=== PATIENT | male | born 1955 | race Caucasian/White ===

== ENCOUNTER 2021-02-04 12:46 | Emergency (ER) | payer OTHER, MEDICARE ==
[~2021-02-04 12:46] MED LIST: KEFLEX250 MG PO
[2021-02-04 14:03] LABS: BILIRUBIN 3+ mg/dL (NEGATIVE); BLOOD NEGATIVE Ery/uL (NEGATIVE); CLARITY CLEAR (CLEAR); GLUCOSE (U) 3+ mg/dL (NORMAL); LEUKOCYTES NEGATIVE Leu/uL (NEGATIVE); NITRITE NEGATIVE (NEGATIVE); PROTEIN TRACE (LOW) mg/dL (NEGATIVE); pH 6.5 (5.0-9.0)
[2021-02-04 14:04] LABS: COLOR AMBER (YELLOW)
[2021-02-04 14:05] LABS: BASOPHIL 0.5 % (0-2); EOSINOPHIL 0.2 % (0-5); HCT 42.8 % (42.0-52.0); HGB 14.9 g/dl (13.2-18.0); LYMPHOCYTE 18.6 % (15-48); MCH 31.6 pg (25.0-31.0); MCHC 34.8 g/dL (32.0-36.0); MCV 90.7 fL (78.0-100.0); MONOCYTE 8.7 % (0-12); NEUTROPHIL 71.6 % (41-80); NRBC 0; PLT 214 K/uL (150-400); RBC 4.72 M/uL (4.70-6.00); RDW 14.4 % (11.5-14.0)
[2021-02-04 14:08] LABS: SQUAMOUS EPITHELIAL CELLS RARE; URINARY RBC RARE; URINARY WBC RARE
[2021-02-04 14:09] LABS: WBC 9.2 K/uL (4.0-10.5)
[2021-02-04 14:44] LABS: CREATININE 0.77 mg/dL (0.67-1.17); POTASSIUM 3.5 mmol/L (3.5-5.1)
[2021-02-04 14:45] LABS: ALBUMIN 2.8 g/dL (3.4-5.0); GLOBULIN (CALCULATION) 4.5 g/dL; TOTAL PROTEIN 7.3 g/dL (6.4-8.2)
[2021-02-04 14:46] LABS: BILIRUBIN - TOTAL 10.9 mg/dL (0.2-1.0)
[2021-02-04 15:22] LABS: CORONAVIRUS 2019 SARS-COV-2 NEGATIVE (NEGATIVE); INFLUENZA A NAA NEGATIVE (NEGATIVE)
== END 2021-02-04 18:02 | disposition other institution (70) ==
LOC: FER 12:46
PROVIDERS: Nurse Practitioner Family
DX: K57.32 Diverticulitis of large intestine without perforation or abscess without bleeding (principal); K83.1 Obstruction of bile duct; Z20.822 Contact with and (suspected) exposure to COVID-19
CPT/HCPCS: 36415; 80053; 81001; 82150; 83605; 83690; 85025; 87040; J2543; J7030; Q9967; U0002

== ENCOUNTER 2021-12-16 15:15 | Inpatient (IN) | payer MEDICARE, OTHER ==
[~2021-12-16] VITALS: Ht 172.7 cm; Wt 48.6 kg
[2021-12-16 16:31] LABS: BASOPHIL 0.2 % (0-2); EOSINOPHIL 0 % (0-5); HCT 38.3 % (42.0-52.0); HGB 12.5 g/dl (13.2-18.0); LYMPHOCYTE 4.2 % (15-48); MCH 30.6 pg (25.0-31.0); MCHC 32.6 g/dL (32.0-36.0); MCV 93.9 fL (78.0-100.0); MONOCYTE 2.1 % (0-12); NRBC 0.3; PLT 180 K/uL (150-400); RBC 4.08 M/uL (4.70-6.00); RDW 15.9 % (11.5-14.0); WBC 11.2 K/uL (4.0-10.5)
[2021-12-16 16:32] LABS: NEUTROPHIL 93.1 % (41-80)
[2021-12-16 17:02] LABS: LACTIC ACID 7.4 mmol/L (0.4-1.9)
[2021-12-16 17:07] LABS: ALBUMIN 1.3 g/dL (3.4-5.0); CREATININE 0.5 mg/dL (0.67-1.17); POTASSIUM 3.8 mmol/L (3.5-5.1); TOTAL PROTEIN 6.3 g/dL (6.4-8.2)
[2021-12-16 17:08] LABS: BILIRUBIN - TOTAL 5.7 mg/dL (0.2-1.0)
[2021-12-17 06:36] LABS: BASOPHIL 0 % (0-2); EOSINOPHIL 0 % (0-7); HCT 23.8 % (42.0-52.0); LYMPHOCYTE 9.4 % (15-48); MCH 31.3 pg (25.0-31.0); MCHC 35.3 g/dL (32.0-36.0); MONOCYTE 2.9 % (0-12); NEUTROPHIL 87.4 % (41-80); NRBC 0; PLT 107 K/uL (150-400); RBC 2.68 M/uL (4.70-6.00); RDW 15.7 % (11.5-14.0)
[2021-12-17 06:41] LABS: HGB 8.4 g/dl (13.2-18.0); MCV 88.8 fL (78.0-100.0)
[2021-12-17 06:46] LABS: INR 1.8 (0.9-1.2); PROTHROMBIN TIME 20.1 SECONDS (11.8-13.4)
[2021-12-17 06:53] LABS: BUN/CREAT RATIO (CALC) 24.4 RATIO; CREATININE 0.41 mg/dL (0.67-1.17); GLOBULIN (CALCULATION) 3.5 g/dL; MAGNESIUM 1.7 mg/dL (1.8-2.4); PHOSPHORUS 2.4 mg/dL (2.6-4.7); POTASSIUM 3.5 mmol/L (3.5-5.1); TOTAL PROTEIN 4.5 g/dL (6.4-8.2)
[2021-12-17 11:03] LABS: BILIRUBIN 3+ mg/dL (NEGATIVE); BLOOD NEGATIVE Ery/uL (NEGATIVE); CLARITY CLEAR (CLEAR); COLOR YELLOW (YELLOW); GLUCOSE (U) NORMAL (NORMAL); LEUKOCYTES NEGATIVE Leu/uL (NEGATIVE); NITRITE POSITIVE (NEGATIVE); PROTEIN TRACE (LOW) mg/dL (NEGATIVE); SPECIFIC GRAVITY 1.015 (1.001-1.030); pH 6.5 (5.0-9.0)
[2021-12-17 11:12] LABS: MUCOUS TRACE
[2021-12-17 11:13] LABS: URINARY RBC RARE
[2021-12-17 11:14] LABS: BACTERIA TRACE; SQUAMOUS EPITHELIAL CELLS RARE
[2021-12-17] MEDS ORDERED: NORCO 5/3251 EACH PO (13:31)
[2021-12-17] MEDS ORDERED: MS CONTIN30 MG PO (13:32)
[2021-12-17] MEDS ORDERED: CARAFATE1 GM PO (13:33)
[2021-12-17] MEDS ORDERED: MOVANTIK12.5 MG PO (13:36)
[2021-12-17] MEDS ORDERED: XARELTO20 MG PO (13:38)
[2021-12-18 08:03] LABS: BUN/CREAT RATIO (CALC) 18.2 RATIO; CREATININE 0.44 mg/dL (0.67-1.17); POTASSIUM 3.1 mmol/L (3.5-5.1)
[2021-12-18 08:40] LABS: BASOPHIL 0.2 % (0-2); EOSINOPHIL 0 % (0-5); HCT 26.3 % (42.0-52.0); HGB 8.9 g/dl (13.2-18.0); LYMPHOCYTE 9.5 % (15-48); MCH 30.8 pg (25.0-31.0); MCHC 33.8 g/dL (32.0-36.0); MONOCYTE 3.8 % (0-12); MPV 11.4 fL (6.0-9.5); NRBC 0; PLT 103 K/uL (150-400); RBC 2.89 M/uL (4.70-6.00); WBC 5.5 K/uL (4.0-10.5)
--- NOTE | 2021-12-18 10:09 | NUR ---
PT BLADDER SCANNED AT 1000, 330 ML RECORDED, PLACED IN CHART.
--- NOTE | 2021-12-18 10:18 | NUR ---
visit with patient's to discuss need for alternate nutrition route with p.o. intake extremely poor. Explained DHT vs PEG; aware of these suggestions as discussed at [facility] from MD. States patient does not wish to include this in his care at this time. Shared recomendation and discussion with with MD Pink. Will follow POC.
--- NOTE | 2021-12-18 18:29 | NUR ---
OK TO ACCESS PT PORT R/T NOT ABLE TO GET PERIPHERAL ACCESS
[2021-12-19 05:27] LABS: BASOPHIL 0 % (0-2); EOSINOPHIL 0 % (0-5); HCT 22.5 % (42.0-52.0); HGB 7.8 g/dl (13.2-18.0); MCH 31.1 pg (25.0-31.0); MCHC 34.7 g/dL (32.0-36.0); MCV 89.6 fL (78.0-100.0); MONOCYTE 5.2 % (0-12); MPV 10.8 fL (6.0-9.5); NEUTROPHIL 79.1 % (41-80); NRBC 0; PLT 89 K/uL (150-400); RBC 2.51 M/uL (4.70-6.00); RDW 15.9 % (11.5-14.0); WBC 4.6 K/uL (4.0-10.5)
[2021-12-19 05:42] LABS: BUN/CREAT RATIO (CALC) 13.2 RATIO; CREATININE 0.38 mg/dL (0.67-1.17); MAGNESIUM 1.8 mg/dL (1.8-2.4); POTASSIUM 2.9 mmol/L (3.5-5.1)
--- NOTE | 2021-12-19 10:49 | NUR ---
PATIENT HAS RED AREA TO COCCYX. NO OPEN AREAS. RED AREA BLANCHEABLE. PROPER TREATMENT IN PLACE. PATIENT INCONTINENT. RECOMMEND TO KEEP SKIN CLEAN AND DRY AND TURN PATIENT EVERY 2 HOURS.
[2021-12-19 13:16] LABS: BUN/CREAT RATIO (CALC) 7.1 RATIO; CREATININE 0.42 mg/dL (0.67-1.17); POTASSIUM 3.2 mmol/L (3.5-5.1)
[2021-12-20 06:25] LABS: BASOPHIL 0 % (0-2); EOSINOPHIL 0 % (0-5); HGB 8.3 g/dl (13.2-18.0); LYMPHOCYTE 15.2 % (15-48); MCH 31.1 pg (25.0-31.0); MCHC 34.6 g/dL (32.0-36.0); MCV 89.9 fL (78.0-100.0); MONOCYTE 7.2 % (0-12); MPV 11.1 fL (6.0-9.5); NEUTROPHIL 77.2 % (41-80); NRBC 0; PLT 121 K/uL (150-400); RBC 2.67 M/uL (4.70-6.00); WBC 5.4 K/uL (4.0-10.5)
[2021-12-20 06:34] LABS: BUN/CREAT RATIO (CALC) 8.3 RATIO; CREATININE 0.36 mg/dL (0.67-1.17); MAGNESIUM 1.7 mg/dL (1.8-2.4); PHOSPHORUS 1.2 mg/dL (2.6-4.7); POTASSIUM 3.3 mmol/L (3.5-5.1)
[2021-12-22 05:57] LABS: BASOPHIL 0.1 % (0-2); EOSINOPHIL 0.1 % (0-5); HGB 7.7 g/dl (13.2-18.0); LYMPHOCYTE 11.5 % (15-48); MCH 31.6 pg (25.0-31.0); MCV 90.2 fL (78.0-100.0); MONOCYTE 3.9 % (0-12); MPV 11.7 fL (6.0-9.5); NEUTROPHIL 83.9 % (41-80); NRBC 0; PLT 134 K/uL (150-400); RBC 2.44 M/uL (4.70-6.00); RDW 16.6 % (11.5-14.0); WBC 7.4 K/uL (4.0-10.5)
[2021-12-22 06:12] LABS: BUN/CREAT RATIO (CALC) 13.9 RATIO; CREATININE 0.36 mg/dL (0.67-1.17); MAGNESIUM 2.1 mg/dL (1.8-2.4); PHOSPHORUS 2.2 mg/dL (2.6-4.7); POTASSIUM 4.1 mmol/L (3.5-5.1)
[2021-12-23 06:08] LABS: BASOPHIL 0.1 % (0-2); EOSINOPHIL 0.1 % (0-5); HCT 19.7 % (42.0-52.0); HGB 6.9 g/dl (13.2-18.0); LYMPHOCYTE 12.3 % (15-48); MCH 31.5 pg (25.0-31.0); MONOCYTE 5.1 % (0-12); MPV 11.5 fL (6.0-9.5); NEUTROPHIL 81.7 % (41-80); NRBC 0; PLT 111 K/uL (150-400); RBC 2.19 M/uL (4.70-6.00); RDW 16.7 % (11.5-14.0)
[2021-12-23 06:32] LABS: BUN/CREAT RATIO (CALC) 12.2 RATIO; CREATININE 0.41 mg/dL (0.67-1.17); MAGNESIUM 1.9 mg/dL (1.8-2.4); PHOSPHORUS 2.3 mg/dL (2.6-4.7); POTASSIUM 3.5 mmol/L (3.5-5.1)
--- NOTE | 2021-12-23 09:18 | NUR ---
[address] EMS TO [facility]. REPORT GIVEN BY GEOFF EGAN. NO COMPLAINTS OF PAIN OR DISCOMFORT. FAMILY ND PATIENT VERBALIZED AN UNDERSTANDING OF NEED FOR TRANSFER. TELE MONITOR DCD.
== END 2021-12-23 08:40 | disposition other institution (70) | DRG 919 ==
LOC: FER 15:15 → FTCU 18:13 → EDBD 18:13 → FTCU 18:13
PROVIDERS: Emergency Medicine; Nurse Practitioner; Nurse Practitioner Acute Care; ADMIT Internal Medicine
PROC: 3E03329 Introduction of Other Anti-infective into Peripheral Vein, Percutaneous Approach (ICD-10-PCS; principal; 2021-12-17)
PROC: BF101ZZ Fluoroscopy of Bile Ducts using Low Osmolar Contrast (ICD-10-PCS; 2021-12-22)
DX: T85.79XA Infection and inflammatory reaction due to other internal prosthetic devices, implants and grafts, initial encounter (principal); A41.59 Other Gram-negative sepsis; E43 Unspecified severe protein-calorie malnutrition; A41.51 Sepsis due to Escherichia coli [E. coli]; C16.9 Malignant neoplasm of stomach, unspecified; E87.2 Acidosis; Z68.1 Body mass index [BMI] 19.9 or less, adult; R74.8 Abnormal levels of other serum enzymes; I48.91 Unspecified atrial fibrillation; D63.0 Anemia in neoplastic disease; B96.1 Klebsiella pneumoniae [K. pneumoniae] as the cause of diseases classified elsewhere; Z20.822 Contact with and (suspected) exposure to COVID-19; Y83.8 Other surgical procedures as the cause of abnormal reaction of the patient, or of later complication, without mention of misadventure at the time of the procedure; E87.6 Hypokalemia; E78.5 Hyperlipidemia, unspecified; H91.91 Unspecified hearing loss, right ear; Z87.891 Personal history of nicotine dependence; Z98.890 Other specified postprocedural states; Z80.0 Family history of malignant neoplasm of digestive organs; Z90.3 Acquired absence of stomach [part of]; Z87.440 Personal history of urinary (tract) infections
CPT/HCPCS: 36415; 36600; 71045; 80048; 80053; 81001; 82553; 82803; 83605; 83690; 83735; 84100; 84484; 85025; 85610; 87040; 87070; 87077; 87186; 93005; 94010; G0378; J0282; J0696; J1170; J1650; J2270; J2405; J2543; J3475; J3480; J7030; J7040; J7060; J7120; U0002

== ENCOUNTER 2022-01-15 14:24 | Emergency (ER) | payer MEDICARE, OTHER ==
[~2022-01-15 14:24] MED LIST changes: +CARAFATE1 GM PO; +MOVANTIK12.5 MG PO; +MS CONTIN30 MG PO; +NORCO 5/3251 EACH PO; +XARELTO20 MG PO
[2022-01-15 15:26] LABS: BASOPHIL 0.1 % (0-2); EOSINOPHIL 0 % (0-5); HCT 26.3 % (42.0-52.0); HGB 8.8 g/dl (13.2-18.0); LYMPHOCYTE 18.1 % (15-48); MCHC 33.5 g/dL (32.0-36.0); MCV 95.6 fL (78.0-100.0); MONOCYTE 4.7 % (0-12); MPV 10.2 fL (6.0-9.5); NEUTROPHIL 76.1 % (41-80); NRBC 0; PLT 361 K/uL (150-400); RBC 2.75 M/uL (4.70-6.00); RDW 17.5 % (11.5-14.0); WBC 9.3 K/uL (4.0-10.5)
[2022-01-15 15:53] LABS: ALBUMIN 1.2 g/dL (3.4-5.0); BILIRUBIN - TOTAL 1.2 mg/dL (0.2-1.0); BUN/CREAT RATIO (CALC) 22.5 RATIO; CREATININE 0.4 mg/dL (0.67-1.17); MAGNESIUM 1.9 mg/dL (1.8-2.4); POTASSIUM 3.4 mmol/L (3.5-5.1); TOTAL PROTEIN 5.2 g/dL (6.4-8.2)
[2022-01-15 15:56] LABS: LACTIC ACID 1.6 mmol/L (0.4-1.9)
[2022-01-15 23:05] LABS: HCT 24.4 % (42.0-52.0)
[2022-01-16 05:18] LABS: BILIRUBIN 1+ mg/dL (NEGATIVE); BLOOD 2+ Ery/uL (NEGATIVE); CLARITY CLEAR (CLEAR); COLOR YELLOW (YELLOW); GLUCOSE (U) NORMAL (NORMAL); LEUKOCYTES NEGATIVE Leu/uL (NEGATIVE); NITRITE NEGATIVE (NEGATIVE); PROTEIN NEGATIVE (NEGATIVE); pH 6.5 (5.0-9.0)
[2022-01-16 05:29] LABS: MUCOUS TRACE
[2022-01-16 05:31] LABS: CALCIUM OXALATE CRYSTALS MODERATE
[2022-01-16 06:54] LABS: BASOPHIL 0 % (0-2); EOSINOPHIL 0 % (0-5); HGB 7.4 g/dl (13.2-18.0); LYMPHOCYTE 27.2 % (15-48); MCH 31.2 pg (25.0-31.0); MCHC 32.2 g/dL (32.0-36.0); MONOCYTE 4.2 % (0-12); NEUTROPHIL 67.4 % (41-80); NRBC 0; PLT 240 K/uL (150-400); RBC 2.37 M/uL (4.70-6.00); RDW 17.6 % (11.5-14.0); WBC 6.7 K/uL (4.0-10.5)
[2022-01-16 07:19] LABS: BILIRUBIN - TOTAL 1.1 mg/dL (0.2-1.0); BUN/CREAT RATIO (CALC) 17.9 RATIO; CREATININE 0.39 mg/dL (0.67-1.17); GLOBULIN (CALCULATION) 3.7 g/dL; TOTAL PROTEIN 4.7 g/dL (6.4-8.2)
== END 2022-01-17 03:30 | disposition other institution (70) ==
LOC: FER 14:24
PROVIDERS: Emergency Medicine; Internal Medicine
DX: R10.13 Epigastric pain (principal); E46 Unspecified protein-calorie malnutrition; R18.8 Other ascites; K86.89 Other specified diseases of pancreas; Z20.822 Contact with and (suspected) exposure to COVID-19
CPT/HCPCS: 36415; 71045; 71275; 74018; 80053; 81001; 83605; 83735; 84145; 84484; 85014; 85018; 85025; 86850; 86900; 86901; 87040; 87088; 93005; J1170; J2405; J3010; J7030; Q9967; U0002